=== PATIENT | female | born 2000 | race African-American/Black ===

== ENCOUNTER 2018-07-23 06:30 | Day surgery (SDC) | payer MEDICAID ==
[2018-07-23 08:08] VITALS: BP 117/71; BMI 21.8
[2018-07-23 08:19] LABS: HCG URINE NEGATIVE (NEGATIVE)
[2018-07-23 08:23] LABS: HEMATOCRIT 37.6 % (36.0-48.0); HEMOGLOBIN 13.3 g/dL (12-16); MCH 30.9 pg (26.0-34.0); MCHC 35.4 g/dL (31.0-37.0); MCV 87.4 fL (80.0-100.0); MEAN PLATELET VOLUME 9.9 fL (7.4-10.4); RBC 4.3 10x6/uL (4.00-5.40); RDW 12.4 % (11.5-14.5); WBC 7.3 10x3/uL (4.8-10.8)
[2018-07-23] MEDS ORDERED: HYDROCODON-ACE1 EA10 PO (12:09)
--- NOTE | 2018-07-23 13:37 | NUR ---
1310 IV DC'D. CATHETER INTACT. PRESSURE APPLIED UNTIL BLEEDING STOPPED. BANDAID APPLIED.
--- NOTE | 2018-07-27 08:25 | OP ---
PATIENT NAME: SARA BEGUM MEDICAL RECORD: [id number] :98 LOCATION:D.OPS ADMISSION DATE: SURGEON: JASON OLIVARES MD DATE OF OPERATION: 07/23/2018 PREOPERATIVE DIAGNOSES: 1. 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 2. Loose body. POSTOPERATIVE DIAGNOSES: 1. Patellofemoral syndrome. 2. Plica. PROCEDURES: 1. Arthroscopic lateral release of the lateral retinaculum. 2. Excision of the lateral based plica. SURGEON: Jason Olivares MD ANESTHESIA: General. INTRAOPERATIVE COMPLICATIONS: None. 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 I did not find any loose bodies after careful examination. OPERATIVE SUMMARY IN DETAIL: After obtaining the appropriate preoperative orthopedic surgery consent as well as anesthetic consultation, evaluation, and clearance, the patient was brought to the operating room and placed on the operating table in supine position. After general laryngeal mask airway was administered, tourniquet was placed about the proximal aspect of the right lower extremity. The right lower extremity was then prepped and draped in routine sterile fashion. The leg was elevated and exsanguinated, tourniquet was inflated to 350 mmHg. Routine inferolateral portal was established followed by superomedial portal and inferomedial portal. Diagnostic arthroscopy revealed the patient had the above findings. Attention was first turned to excision of plica along the lateral shelf. This was done under direct arthroscopic visualization. At this point, a hook tip tissue ablation system from [employer] was placed in the lateral retinaculum, it was released from the inferior aspect of the vastus lateralis to the inferolateral portal. Having completed this, arthroscopy portals were closed in routine interrupted fashion using 4-0 Prolene. Sterile dressings were applied. The patient was awakened and taken to recovery room in stable condition. All final needle and sponge counts were correct. TRANSINT:[id number] Voice Confirmation ID: [id number] DOCUMENT ID: [id number] OPERATIVE REPORT [id number] SARA BEGUM MARSHALL DUPREE, JASON GRAF at 0825 CC: [id number] DICTATION DATE: 07/24/18908 JACQUARD CARD LACER: 07/24/18 1142 [facility] 07/23/18 [place] [id number] [place] [id number]
== END 2018-07-23 13:29 | disposition home or self-care (01) ==
LOC: D.OPS 06:30 → D.PAN 08:30 → D.OPS 08:30
PROVIDERS: Anesthesiology; ATTEND Orthopaedic Surgery
DX: M23.41 Loose body in knee, right knee (principal); M22.2X1 Patellofemoral disorders, right knee